=== PATIENT | female | born 1985 | race Caucasian/White ===

== ENCOUNTER 2017-02-21 14:47 | Emergency (ER) | payer SELFPAY ==
[2017-02-21 14:50] VITALS: BP 127/61; BMI 34.5
--- NOTE | 2017-02-21 15:08 | DR.EXTPAIN ---
HPI - Time seen Time seen: 15:00 - PCP Primary Care Physician: JUAN JOSE STALEY - Complaint/Symptoms Chief Complaint Doctor Comments: Patient admits to falling outside this morning slipping on ice. Admits to 10/10 pain, sharp, severe worse with pressure Chief Complaint:: PT. FELL THIS MORNING ON SOME ICE OUTSIDE HURTING HER LEFT FOOT AND ANKLE. - Source History Provided: Patient - Mode of arrival Mode of Arrival: Wheelchair - Timing Onset of Chief Complaint: 02/21/17 PMH - PMH Past Medical History: Yes Past Medical History: Seizures Past Surgical History: Yes Surgical History: Other Past Surgical History Comment: I&D - Family History History of Family Medical Conditions: Yes Family Medical History: NH - Social History Does patient currently use any type of tobacco product: Yes Have you used tobacco products in the last 12 months: Yes Type of Tobacco Use: Cigarettes Does any household member use tobacco: No Alcohol Use: None Do you use any recreational Drugs:: No Lives With: Family Lives Where: Home - infectious screening In the last 2 months have you had wt loss of >10#?: NO Have you had fever, night sweats or hemotysis?: No Have you traveled outside the country in the last 6 months?: No Isolation: Standard ROS - Review of Systems Eyes: No Symptoms Reported ENTM: No Symptoms Reported Respiratoy: No Symptoms Reported Cardiovascular: No Symptoms Reported Gastrointestinal/Abdominal: No Symptoms Reported Genitourinary: No Symptoms Reported Neurological: No Symptoms Reported Musculoskeletal: Foot (pain) Integumentary: No Symptoms Reported Hematologic/Lymphatic: No Symptoms Reported Endocrine: No Symptoms Reported Psychiatric: No Symptoms Reported All Other Systems: Reviewed and Negative PE - Vital Signs Vitals: Temperature 99 F Pulse Rate 121 Respiratory Rate 20 Blood Pressure 127/61 O2 Sat by Pulse Oximetry 97 - General General Appearance: Alert, In Distress - Head Head Exam: Normal Inspection, Atraumatic - Eyes Eye exam: Normal Appearance, PERRL, EOMI - ENT ENT Exam: Normal Exam - Neck Neck Exam: Normal Inspection, Full ROM - Chest Chest Inspection: Normal Inspection, Symmetric Chest Wall Rise - Respiratory Respiratory Exam: Normal Lung Sounds Bilat Respiratory Exam: Bilateral Clear to Auscultation - Cardiovascular Cardiovascular Exam: Regular Rate - Abdominal Exam Abdominal Exam: Normal Inspection, Normal Bowel Sounds Abdominal Tenderness: RUQ, RLQ, LUQ, LLQ, Epigastrium, Suprapubic, Diffuse, Mild , Moderate, Severe, Other - Extremities Extremities Exam: Tenderness (left mid-lateral foot), Normal Capillary Refill - Lower Extremities Hip/Pelvis Exam: Normal Inspection Upper Leg Exam: Normal Inspection Knee Exam: Normal Inspection Lower Leg Exam: Normal Inspection Ankle Exam: Tenderness (cuboid) Foot/Toe Exam: Swelling (mid lateral foot) Neurovascular/Tendon Exam: Normal Capillary Refill Gait Exam: Observed and Normal - Back Back Exam: Normal Inspection, Full ROM - Neurological Neurological Exam: Alert, Oriented X3, CN II-XII Intact - Psychiatric Psychiatric Exam: Normal Affect - Skin Skin Exam: Warm, Dry, Intact Course - Reevaluation 1st: Unchanged ROR - Labs Reviewed Laboratory Results Reviewed?: Yes - XRAY XRAY Interpreted by: Radiologist (Foot: No acute abnormality noted) - Diagnosis Discharge Problem: Ankle sprain Qualifiers: Encounter type: initial encounter Involved ligament of ankle: calcaneofibular ligament Laterality: left Qualified Code(s): S93.412A - Sprain of calcaneofibular ligament of left ankle, initial encounter - Discharge Plan Condition: Stable - Follow ups/Referrals Follow ups/Referrals: JUAN JOSE STALEY [Primary Care Provider] - 3 days - Instructions
[2017-02-21] MEDS ORDERED: TORADOL 60 MG VIAL IM ONE (15:09)
[2017-02-21] MEDS ORDERED: TORADOL 60 MG VIAL ONE (15:11)
--- NOTE | 2017-02-21 15:21 | RAD ---
Left foot, three views Indication: Fall with foot pain Comparison: None Findings: No acute fracture or malalignment is identified. Joint spaces are preserved without signifi cant arthropathy. There is no gross soft tissue injury. Impression: No acute radiographic abnormality of the left foot. Reported By:
--- NOTE | 2017-02-21 15:22 | RAD ---
Examination: X-rays of the left ankle. Clinical history: Left ankle/foot pain status post fall this afternoon. Technique: Three views of the left ankle were obtained. Comparison: None available. Findings: No acute fracture, dislocation, or destructive bony lesion is noted. No soft tissue abnormality is noted. Impression: 1. No acute fracture or dislocation. Reported By:
== END 2017-02-21 15:47 | disposition home or self-care (01) ==
LOC: ER 15:00
DX: S93.412A Sprain of calcaneofibular ligament of left ankle, initial encounter (principal); W19.XXXA Unspecified fall, initial encounter; Y92.89 Other specified places as the place of occurrence of the external cause
CPT/HCPCS: 73610; 73630; 96372; 99282; 99283; J1885